=== PATIENT | female | born 1975 | race Caucasian/White ===

== ENCOUNTER 2016-08-09 20:23 | Emergency (ER) | payer OTHER ==
[~2016-08-09] VITALS: Ht 170.2 cm; Wt 59.0 kg
[~2016-08-09 20:23] MED LIST: ACET500L PO; SUDA30TA2 PO
[2016-08-09 20:30] VITALS: BP 119/87; PULSE 77; RESP 15; TEMP 97.8; O2SAT 97
== END 2016-08-09 22:02 | disposition left against medical advice (07) ==
LOC: PHED 20:23
DX: R51 Headache (principal)
CPT/HCPCS: 99281

== ENCOUNTER 2018-01-06 16:37 | Emergency (ER) | payer BC, OTHER ==
[~2018-01-06] VITALS: Ht 170.2 cm; Wt 58.0 kg
[2018-01-06 16:40] VITALS: BP 118/68; PULSE 88; RESP 16; TEMP 97.8; O2SAT 96
[2018-01-06] MEDS ORDERED: CEPH-460 PO (17:22)
[2018-01-06] MEDS ORDERED: MUPI2%T TOPICAL (17:22)
--- NOTE | 2018-01-06 17:25 | PD ---
HPI Chief Complaint: Laceration/Skin Injury Time Seen by Provider: 17:14 Travel History International Travel<30 days: No Contact w/Intl Traveler<30days: No Traveled to known affect area: No History of Present Illness HPI 42 year old female presents to the emergency department for evaluation of a laceration between the 2nd and 3rd fingers of the left hand that occurred just prior to arrival. Patient states she was trying to fix her garbage disposal and had a tool in it to fix it when it was turned on causing the tool to cut her hand. Patient is unsure when her last tetanus immunization was. Current pain is 2/10 worse with palpation, movement of the associated fingers. Patient denies any other symptoms or complaints. Mild severity. PFSH Past Medical History Medical History: Denies Significant Hx Diminished Hearing: No Immunizations Current: Yes Tetanus Vaccination: Unknown Influenza Vaccination: Yes ?: Not LMP: 2 WEEKS Past Surgical History Other Surgery: Yes (BREAST AUG) Social History Alcohol Use: Yes (OCC) Tobacco Use: No Substance Use: No Allergies-Medications (Allergen,Severity, Reaction): Coded Allergies: No Known Allergies (Verified Adverse Reaction, Unknown, 01/06/18) Reported Meds & Prescriptions Reported Meds & Active Scripts Active Keflex (Cephalexin) 500 Mg Cap 500 Mg PO Q8H 7 Days Bactroban Topical (Mupirocin) 22 Gm Cream 1 Applic TOPICAL BID Review of Systems Except as stated in HPI: all other systems reviewed are Neg Physical Exam Narrative GENERAL: Well-nourished, well-developed female patient, ambulatory. Afebrile. SKIN: Focused skin assessment warm/dry. Patient has a 3 cm laceration between the left 2nd and 3rd fingers in the web space. HEAD: Normocephalic. Atraumatic. EYES: No scleral icterus. No injection or drainage. NECK: Supple, trachea midline. No JVD or lymphadenopathy. RESPIRATORY: No accessory muscle use. MUSCULOSKELETAL: No cyanosis, or edema. Patient has full flexion and extension of all digits of the left hand. She has full sensation to the distal digits of the left hand. Data Data Last Documented VS Vital Signs Date Time Temp Pulse Resp B/P (MAP) Pulse Ox O2 Delivery O2 Flow Rate FiO2 01/06/18 16:40 97.8 88 16 118/68 (85) 96 Orders Orders Lidocaine 1% Inj (50 Ml) (Xylocaine 1% I (6/20/18 17:30) Tetanus/Diphtheria Tox Adult (Tetanus/Di (01/06/18 17:30) Lidocaine Pf 1% Inj (Xylocaine-Mpf 1% In (01/06/18 17:29) MDM Medical Decision Making Medical Screen Exam Complete: Yes Emergency Medical Condition: Yes Medical Record Reviewed: Yes Differential Diagnosis laceration vs. abrasion vs. contusion vs. tendon laceration Narrative Course 42 year old female presents to the emergency department for evaluation of a laceration to the web space between the left 2nd and 3rd fingers. She gives verbal consent for laceration repair. Patient is instructed on proper wound care. Tetanus immunization is updated. Procedures Procedure Narrative LACERATION LOCATION: web space between left 2nd and 3rd fingers LENGTH: 3 cm NUMBER OF STITCHES/SWEETIE: 6 simple interrupted sutures REPAIR: The area of the laceration was prepped with Betadine and sterilely draped. The laceration was infiltrated with 1% lidocaine. The wound was copiously irrigated and explored without evidence of foreign body, tendon injury or neurovascular injury. The wound was closed using 4-0 Prolene. This was a single layer repair. A sterile dressing was applied. The patient was advised to keep the dressing clean and dry. Patient tolerated the procedure well. Diagnosis Primary Impression: Laceration of left hand Qualified Codes: S61.412A - Laceration without foreign body of left hand, initial encounter Referrals: Primary Care Physician call for appointment Patient Instructions: Care For Your Stitches (ED), General Instructions, Laceration (ED) Additional Instructions: Take antibiotic as directed until gone. Clean laceration twice daily and apply prescribed antibiotic ointment. Keep clean and dry. No swimming or hot tubs until healed. Suture removal in 7-10 days. You may follow up with your primary care physician or return to the emergency department for this. Return to the emergency department for any acute, worsening of symptoms. Med/Other Pt SpecificInfo: Prescription(s) given Scripts Cephalexin (Keflex) 500 Mg Cap 500 MG PO Q8H for Infection for 7 Days, #21 CAP 0 Refills Prov: Radha Bocanegra 01/06/18 Mupirocin Topical (Bactroban Topical) 22 Gm Cream 1 APPLIC TOPICAL BID for Mgmt Bacterial Infection, #1 TUBE 0 Refills Prov: Radha Bocanegra 01/06/18 Disposition: 01 DISCHARGE HOME Condition: Stable Radha Bocanegra Jan 06, 2018 17:25
[2018-01-06] MEDS ORDERED: LIDOCAINE HCL 1% PF 30 ML VIAL ONE (17:29)
[2018-01-06] MEDS ORDERED: TETANUS/DIPHTHERIA TOXOID ADULT 0.5 ML VIAL IM ONE (17:30)
[2018-01-06] MEDS ORDERED: LIDOCAINE HCL 1% 50 ML VIAL INFIL ONE (17:30)
== END 2018-01-06 18:07 | disposition home or self-care (01) ==
LOC: PHEFT 16:37
DX: S61.412A Laceration without foreign body of left hand, initial encounter (principal); W27.8XXA Contact with other nonpowered hand tool, initial encounter; Y93.89 Activity, other specified; Z23 Encounter for immunization
CPT/HCPCS: 12002; 90471; 90714